=== PATIENT | female | born 1955 | race Caucasian/White ===

== ENCOUNTER 2019-03-25 16:49 | Observation (INO) | payer OTHER ==
[~2019-03-25] VITALS: Ht 154.9 cm; Wt 52.7 kg
[2019-03-25] MEDS ORDERED: Multivitamin1 EAC1 PO (17:00)
[2019-03-25] MEDS ORDERED: Prinivil10 MG PO (17:01)
[2019-03-25] MEDS ORDERED: ALBU90OI61 INH (17:01)
[2019-03-25 17:33] LABS: Source, Urine Clean Catch
[2019-03-25 17:40] LABS: Bilirubin, Urine Neg (Neg); Blood, Urine Neg (Neg); Glucose Qualitative, Urine Neg (Neg); Ketones, Urine Neg (Neg); Leukocyte Esterase, Urine 1+ (Neg); Nitrite, Urine Neg (Neg); Protein, Urine Neg (Neg); Urobilinogen, Urine NORM (Normal)
[2019-03-25 18:04] LABS: Color, Urine Yellow (P-Yellow)
[2019-03-25 18:05] LABS: Appearance, Urine Clear (Clear)
[2019-03-25 18:05] LABS: Calcium, Ionized (POC) 1.05 mmol/L (1.10-1.46); Chloride (POC) 103 mmol/L (98-108); Creatinine (POC) 1.1 mg/dL (0.6-1.0); Glucose (ISTAT POC) 100 mg/dL (70-99); Hemoglobin (POC) 8.8 g/dL (12.0-16.0); Potassium (POC) 4.6 mmol/L (3.5-5.5); Sodium (POC) 132 mmol/L (135-148); Total CO2 (POC) 20 mmol/L (21-32)
[2019-03-25 18:06] LABS: Bacteria Not Seen /hpf; Red Blood Cells, Urine 0-2 /hpf (0-2); Squamous Epithelial Cells Few /hpf (Few)
[2019-03-25 18:11] LABS: U Amphetamine Screen Not Detected; U Barbituate Screen Not Detected; U Benzodiazapine Screen Not Detected; U Buprenorphine Screen Not Detected; U Cannabinoids Screen Not Detected; U Cocaine Screen Not Detected; U Methadone Screen Not Detected; U Methamphetamine Screen Not Detected; U Opiates Screen Not Detected; U Oxycodone Screen Not Detected; U Phencyclidine Screen Not Detected; U Propoxyphene Screen Not Detected
[2019-03-25 18:58] LABS: Percent Saturation 19.4 % (15.0-50.0)
[2019-03-25] MEDS ORDERED: ATORVASTATIN CA20 MG PO (19:10)
[2019-03-25] MEDS ORDERED: ONDA4ODT SL (19:20)
[2019-03-25 19:54] LABS: Magnesium, Blood 1.8 mg/dL (1.6-2.4)
[2019-03-25 20:03] LABS: Troponin I <0.015 ng/mL (0.000-0.040)
[2019-03-25 20:59] LABS: Hematocrit 25.9 % (33.0-51.0); Hemoglobin 8.9 g/dL (11.5-16.0)
[2019-03-25 21:14] LABS: Anion Gap 9 mmol/L (6-16); Blood Urea Nitrogen 26 mg/dL (8-24); Bun/Creatinine Ratio 29.9 (12.0-20.0); CO2, Blood 20 mmol/L (21-32); Calcium, Blood 8.4 mg/dL (8.5-10.1); Chloride, Blood 106 mmol/L (98-108); Creatinine, Blood 0.87 mg/dL (0.40-1.00); Glomerular Filtration Rate >60 (60-); Glucose, Blood 97 mg/dL (70-99); Potassium, Blood 4.4 mmol/L (3.5-5.5); Sodium, Blood 135 mmol/L (136-145)
[2019-03-26 01:57] LABS: BASOPHILS ABSOLUTE AUTO 0.05 K/mm3 (0.00-0.23); BASOPHILS PERCENT AUTO 1 % (0-2); EOSINOPHILS ABSOLUTE AUTO 0.15 K/mm3 (0.00-0.68); EOSINOPHILS PERCENT AUTO 2 % (0-6); Hemoglobin 8.6 g/dL (11.5-16.0); IMMATURE GRAN ABSOLUTE AUTO 0.02 K/mm3 (0.00-0.10); IMMATURE GRAN PERCENT AUTO 0 % (0-1); LYMPHOCYTES ABSOLUTE AUTO 2.43 K/mm3 (0.84-5.20); LYMPHOCYTES PERCENT AUTO 39 % (21-46); MONOCYTES ABSOLUTE AUTO 0.63 K/mm3 (0.16-1.47); MONOCYTES PERCENT AUTO 10 % (4-13); Mean Corpuscular HGB 36.3 pg (26.0-34.0); Mean Corpuscular HGB Conc 34.4 g/dL (31.5-36.5); Mean Corpuscular Volume 106 fL (80-100); Mean Platelet Volume 9.3 fL (9.1-12.4); NEUTROPHILS PERCENT AUTO 48 % (41-73); Platelet Count 157 K/mm3 (150-400); RDW Coefficient Variation 13.7 % (11.7-14.2); RDW Standard Deviation 53.1 fL (35.1-46.3); Red Blood Cell Count 2.37 M/mm3 (3.80-5.20); White Blood Cell Count 6.28 K/mm3 (4.00-11.30)
[2019-03-26 02:09] LABS: International Normalized Ratio 0.93; Prothrombin Time Results 9.9 Sec (9.7-11.5)
[2019-03-26 02:13] LABS: Alanine Aminotransfer (ALT/SGP 22 U/L (12-78); Albumin, Blood 3.1 g/dL (3.4-5.0); Alk Phos 67 U/L (50-136); Anion Gap 7 mmol/L (6-16); Aspartate Aminotrans (AST/SGOT 35 U/L (12-37); Bilirubin, Total 0.6 mg/dL (0.1-1.0); Blood Urea Nitrogen 21 mg/dL (8-24); Bun/Creatinine Ratio 27.3 (12.0-20.0); CO2, Blood 23 mmol/L (21-32); Calcium, Blood 8.5 mg/dL (8.5-10.1); Chloride, Blood 108 mmol/L (98-108); Creatinine, Blood 0.77 mg/dL (0.40-1.00); Glomerular Filtration Rate >60 (60-); Glucose, Blood 96 mg/dL (70-99); Potassium, Blood 4.1 mmol/L (3.5-5.5); Sodium, Blood 138 mmol/L (136-145); Total Protein, Blood 6.1 g/dL (6.4-8.2)
--- NOTE | 2019-03-26 04:52 | NUR ---
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 PT [id number] AND VERY PLEASANT. STANDBY ASSIST TO THE BATHROOM. PRIOR TO ADMIT, PT STATED SHE WAS AT WORK AND BEGAN TO GET A HEADACHE AND BECAME LIGHT HEADED AND DIZZY. SINCE COMING TO THE FLOOR, PT STATES SHE FEELS MUCH IMPROVED BUT IS "STILL NOT QUITE MY NORMAL". HGB 8.9 ON ADMIT AND HAS BEEN STABLE AT 8.6 WITH AM LABS. PT GOT A 1L BOLUS OF LR'S WHEN SHE ARRIVED TO THE FLOOR AND HAS BEEN ON MAINTENANCE LR'S SINCE. VSS, WILL CONTINUE TO MONITOR.
--- NOTE | 2019-03-26 11:48 | NUR ---
PATIENT NEEDED A STOOL SAMPLE. SAMPLE WAS COLLECTED AT 1148 AND WAS SENT TO THE LAB.
[2019-03-26 13:32] LABS: Stool Occult Blood Guaiac 1 Neg (Neg)
[2019-03-26 13:47] LABS: Stool Occult Bld Immuno 1 Negative (NEGATIVE)
--- NOTE | 2019-03-26 19:06 | NUR ---
PT. SAYS SHE FEELS MUCH BETTER THIS EVENING. GUIAC NEGATIVE. NO N/V THIS SHIFT.POSSIBLE DISCHARGE IN AM.
[2019-03-27 04:59] LABS: BASOPHILS ABSOLUTE AUTO 0.06 K/mm3 (0.00-0.23); BASOPHILS PERCENT AUTO 1 % (0-2); EOSINOPHILS ABSOLUTE AUTO 0.24 K/mm3 (0.00-0.68); EOSINOPHILS PERCENT AUTO 5 % (0-6); Hematocrit 25.4 % (33.0-51.0); Hemoglobin 8.4 g/dL (11.5-16.0); IMMATURE GRAN ABSOLUTE AUTO 0.01 K/mm3 (0.00-0.10); IMMATURE GRAN PERCENT AUTO 0 % (0-1); LYMPHOCYTES PERCENT AUTO 47 % (21-46); MONOCYTES ABSOLUTE AUTO 0.57 K/mm3 (0.16-1.47); MONOCYTES PERCENT AUTO 12 % (4-13); Mean Corpuscular HGB Conc 33.1 g/dL (31.5-36.5); Mean Corpuscular Volume 106 fL (80-100); Mean Platelet Volume 9.5 fL (9.1-12.4); NEUTROPHILS ABSOLUTE AUTO 1.62 K/mm3 (1.96-9.15); NEUTROPHILS PERCENT AUTO 35 % (41-73); Platelet Count 175 K/mm3 (150-400); RDW Coefficient Variation 13.5 % (11.7-14.2)
--- NOTE | 2019-03-27 06:29 | NUR ---
PT HAD AN UNEVENTFUL SHIFT. NO COMPLAINTS OF PAIN OR DIZZINESS. PT SLEPT MOST OF THE NIGHT. NO TELEMETRY CALLS WERE RECIEVED DURING THE SHIFT. WILL CONTINUE TO MONITOR.
[2019-03-27] MEDS ORDERED: FERSU300 PO (10:48)
[2019-03-27] MEDS ORDERED: FOLI1 PO (10:49)
--- NOTE | 2019-03-27 11:34 | NUR ---
PT. GIVEN DISCHARGE INSTRUCTIONS AND DISCHARGED HOME WITH DAUGHTER. DENIES N/V PAIN OR DIZZINESS TODAY. VERBALIZED UNDERSTANDING OF DC INSTRUCTIONS. WORK NOT GIVEN.
== END 2019-03-27 11:34 | disposition home or self-care (01) ==
LOC: ER 16:49 → MEDS 16:50 → ER 19:33 → MEDS 19:33 → ENPENDDIS 03-27 10:26 → MEDS 03-27 11:34
PROVIDERS: Emergency Medicine; Hospitalist; Nurse Practitioner Acute Care; ADMIT Internal Medicine
DX: N17.9 Acute kidney failure, unspecified (principal); E86.0 Dehydration; R55 Syncope and collapse; D53.9 Nutritional anemia, unspecified; E53.8 Deficiency of other specified B group vitamins; E61.1 Iron deficiency; I10 Essential (primary) hypertension; E78.5 Hyperlipidemia, unspecified; Z87.891 Personal history of nicotine dependence; Z88.5 Allergy status to narcotic agent; Z88.8 Allergy status to other drugs, medicaments and biological substances
CPT/HCPCS: 36415; 74176; 80047; 80048; 80053; 81001; 82272; 82274; 82607; 82728; 82746; 83540; 83550; 83605; 83735; 84484; 85014; 85018; 85025; 85610; 87086; 93005; 93010; 96374; 96375; 99285-25; A9270; G0378; G0480; J0610; J2405; J7120

== ENCOUNTER → 2019-03-25 | Outpatient (CLI) | payer OTHER ==
[~2019-03-25] MED LIST: ALBU90OI61 INH; ATORVASTATIN CA20 MG PO; FERSU300 PO; FOLI1 PO; Multivitamin1 EAC1 PO; ONDA4ODT SL; Prinivil10 MG PO
[2019-03-25 14:00] LABS: BASOPHILS ABSOLUTE AUTO 0.05 K/mm3 (0.00-0.23); BASOPHILS PERCENT AUTO 1 % (0-2); EOSINOPHILS ABSOLUTE AUTO 0.03 K/mm3 (0.00-0.68); EOSINOPHILS PERCENT AUTO 0 % (0-6); Hematocrit 26.9 % (33.0-51.0); Hemoglobin 9.4 g/dL (11.5-16.0); IMMATURE GRAN ABSOLUTE AUTO 0.06 K/mm3 (0.00-0.10); IMMATURE GRAN PERCENT AUTO 1 % (0-1); LYMPHOCYTES ABSOLUTE AUTO 1.34 K/mm3 (0.84-5.20); LYMPHOCYTES PERCENT AUTO 16 % (21-46); MONOCYTES ABSOLUTE AUTO 0.55 K/mm3 (0.16-1.47); MONOCYTES PERCENT AUTO 6 % (4-13); Mean Corpuscular HGB 35.3 pg (26.0-34.0); Mean Corpuscular HGB Conc 34.9 g/dL (31.5-36.5); Mean Corpuscular Volume 101 fL (80-100); Mean Platelet Volume 9.4 fL (9.1-12.4); NEUTROPHILS ABSOLUTE AUTO 6.63 K/mm3 (1.96-9.15); NEUTROPHILS PERCENT AUTO 77 % (41-73); Platelet Count 195 K/mm3 (150-400); RDW Coefficient Variation 13.8 % (11.7-14.2); RDW Standard Deviation 50.9 fL (35.1-46.3); Red Blood Cell Count 2.66 M/mm3 (3.80-5.20); White Blood Cell Count 8.66 K/mm3 (4.00-11.30)
[2019-03-25 14:15] LABS: Alanine Aminotransfer (ALT/SGP 29 U/L (12-78); Albumin, Blood 3.7 g/dL (3.4-5.0); Alk Phos 77 U/L (40-126); Anion Gap 16 mmol/L (6-16); Aspartate Aminotrans (AST/SGOT 37 U/L (12-37); Bilirubin, Total 0.3 mg/dL (0.1-1.0); Blood Urea Nitrogen 27 mg/dL (8-24); Bun/Creatinine Ratio 21.1 (12.0-20.0); CO2, Blood 21 mmol/L (21-32); Calcium, Blood 8.9 mg/dL (8.5-10.1); Chloride, Blood 98 mmol/L (98-108); Creatinine, Blood 1.28 mg/dL (0.40-1.00); Globulin, Blood 3.8 g/dL (2.2-4.0); Glomerular Filtration Rate 42 (60-); Glucose, Blood 104 mg/dL (70-99); Sodium, Blood 135 mmol/L (136-145); Total Protein, Blood 7.5 g/dL (6.4-8.2); Troponin I <0.017 ng/mL (0.000-0.040)
== END ==
LOC: LAB EV 13:51 → LAB SHORT 13:51
PROVIDERS: Emergency Medicine
DX: R55 Syncope and collapse (principal)
CPT/HCPCS: 80053; 84484; 85025; 85379; 87040